=== PATIENT | female | born 1930 | race African-American/Black ===

== ENCOUNTER 2017-01-02 16:21 | Emergency (ER) | payer MEDICARE ==
[~2017-01-02] VITALS: Ht 162.6 cm; Wt 54.4 kg
[2017-01-02 18:00] VITALS: BP 147/84
== END 2017-01-02 18:01 | disposition home or self-care (01) ==
LOC: ER 16:23
DX: I10 Essential (primary) hypertension (principal); E11.9 Type 2 diabetes mellitus without complications
CPT/HCPCS: 82962; 99283; A4606; Z7610